=== PATIENT | female | born 1940 | race Caucasian/White ===

== ENCOUNTER 2017-01-21 07:48 | Outpatient (CLI) | payer MEDICARE, OTHER ==
[2012-06-27 10:09] VITALS: BP 147/85
[2017-01-21 08:47] LABS: eGFR (African) > 60; eGFR (Non-African) > 60
== END 2017-01-21 07:50 ==
LOC: LAB 07:48
PROVIDERS: ATTEND Family Medicine
DX: E78.2 Mixed hyperlipidemia (principal); I10 Essential (primary) hypertension
CPT/HCPCS: 36415; 80053; 80061

== ENCOUNTER 2018-06-26 11:51 | Emergency (ER) | payer MEDICARE, OTHER ==
--- NOTE | 2018-06-26 11:58 | ED Physician Documentation ---
General Adult - HISTORIAN Historian: patient - HPI Stated Complaint: productive cough, chest wall pain, Chief Complaint: General Adult Onset: days ago Timing: still present Severity: moderate Further Comments: yes (Pt is a 78 yo female with pain in her R lower chest wall and a productive cough and some malaise. Pt had pneumonia in April and was tx'd with amoxicillin. Pt has not had fever. Chest pain occurs with pressing on her lower R chest.) - ROS CONST: no problems EYES/ENT: nasal congestion CVS/RESP: cough GI/: none MS/SKIN/LYMPH: none - PAST HX Past History: other (HLD, HTN, Thyroid d/o.) Allergies/Adverse Reactions: Allergies Allergy/AdvReac Type Severity Reaction Status Date / Time No Known Allergies Allergy Verified 06/26/18 12:13 Home Medications: Ambulatory Orders Medication Instructions Recorded Azithromycin 250 mg PO DAILY #6 tablet 06/26/18 Fluconazole [Diflucan] 150 mg PO QD #2 tablet 06/26/18 Levofloxacin [Levaquin] 500 mg PO DAILY #10 tablet 06/26/18 - SOCIAL HX Smoking History: quit greater than 1 year - FAMILY HX Family History: No - VITAL SIGNS Vital Signs: Vital Signs Temp Pulse Resp BP Pulse Ox 147/85 06/27/12 10:08 - REVIEWED ASSESSMENTS Nursing Assessment Reviewed: Yes Vitals Reviewed: Yes Progress - Progress Progress: CXR: Findings: The lungs are hyperinflated. Hazy opacities are observed in each cardiophrenic angle. Heart size and pulmonary vascularity are normal. There is no pleural effusion. Impression: 1. Bilateral cardiophrenic angle opacities. Differential includes pericardial fat pads as well as right middle lobe and lingular parenchymal disease. 2. Hyperinflation. Rx Azithromycin (250 mg.). Take two tabets by mouth on day #1. Take one tablet by mouth once daily for the next 4 days. Rx Levaquin 500 mg. Take one tablet by mouth once daily for 10 days. Rx Diflucan 150 mg. Take one by mouth. May repeat after one week. General Adult Physical Exam - PHYSICAL EXAM GENERAL APPEARANCE: mild distress EENT: ENT inspection normal, pharynx normal NECK: normal inspection, supple RESPIRATORY: no resp distress, chest non-tender, rales (R lower lung field) CVS: reg rate & rhythm, heart sounds normal ABDOMEN: soft, no organomegaly, normal bowel sounds BACK: normal inspection, no CVA tenderness SKIN: warm/dry, normal color EXTREMITIES: non-tender, normal range of motion, no evidence of injury, no edema NEURO: oriented X3, motor nml, sensation nml Discharge Clincal Impression: Opacities of both lungs present on chest x-ray Prescriptions: Azithromycin 250 mg PO DAILY #6 tablet Fluconazole [Diflucan] 150 mg PO QD #2 tablet Levofloxacin [Levaquin] 500 mg PO DAILY #10 tablet Referrals: Zach Marie MD [Primary Care Provider] - 2 Days Condition: Good Disposition: 01 HOME, SELF-CARE Decision to Admit: NO Decision Time: 13:40
[2018-06-26 12:57] LABS: MEAN CORPUSCULAR HEMOGLOBIN 31.7 pg (28.0-34.0)
[2018-06-26 12:58] LABS: BASOPHILS % 0.7 (0.0-1.5); MONOCYTES % 5.5 % (0.0-11.0)
[2018-06-26 12:59] LABS: eGFR (Non-African) > 60
--- NOTE | 2018-06-26 13:32 | Diagnostic Imaging Report ---
ERIC ARTEAGA [facility] [id number] [facility] [address] [address] Report Submission Date: Jun 26, 2018 12:22:48 PM [employer]OR VEHICLE REPRESENTATIVE Patient Study Name: KAY KNIGHT Date: Jun 26, 2018 12:05:36 PM MOTOR VEHIC[employer] REPRESENTATIVE Modality Type: DX Gender: F Description: CHEST 2VIEW : 42 Institution: [facility] Physician: ERIC ARTEAGA Chest two views History: Cough Findings: The lungs are hyperinflated. Hazy opacities are observed in each cardiophrenic angle. Heart size and pulmonary vascularity are normal. There is no pleural effusion. Impression: 1. Bilateral cardiophrenic angle opacities. Differential includes pericardial fat pads as well as right middle lobe and lingular parenchymal disease. 2. Hyperinflation. Electronically signed on Jun 26, 2018 12:22:48 PM MOTOR VEHICLE REPRESENTATIVE by: Zachariah KELSEY
[2018-06-26 13:41] VITALS: BP 143/67
== END 2018-06-26 13:39 | disposition home or self-care (01) ==
LOC: ED 11:51
DX: R91.8 Other nonspecific abnormal finding of lung field (principal); Z87.891 Personal history of nicotine dependence
CPT/HCPCS: 36415; 71046; 80053; 83880; 85025; 87040; 99283